=== PATIENT | male | born 1990 | race African-American/Black ===

== ENCOUNTER 2018-06-23 09:44 | Emergency (ER) | payer SELFPAY ==
[2018-06-23] MEDS ORDERED: Dexamethasone 4 mg/ml Vial ONE (10:07)
== END 2018-06-23 10:10 | disposition home or self-care (01) ==
LOC: ERS 09:44
DX: K08.89 Other specified disorders of teeth and supporting structures (principal)
CPT/HCPCS: 99283; J1100

== ENCOUNTER 2018-11-09 11:15 | Emergency (ER) | payer SELFPAY ==
[2018-11-09] MEDS ORDERED: Ondansetron ODT 4 MG TAB ONE (12:55)
== END 2018-11-09 13:30 | disposition home or self-care (01) ==
LOC: ERS 11:15
DX: R11.2 Nausea with vomiting, unspecified (principal)
CPT/HCPCS: 96372; J0500; Q0162

== ENCOUNTER 2018-11-16 11:22 | Emergency (ER) | payer SELFPAY ==
[2018-11-16] MEDS ORDERED: Ibuprofen 200 MG TAB ONE ×2 (12:59→13:05)
== END 2018-11-16 14:52 | disposition home or self-care (01) ==
LOC: ERS 11:22
DX: R51 Headache (principal)
CPT/HCPCS: 99283

== ENCOUNTER 2020-10-27 01:55 | Emergency (ER) | payer SELFPAY | END 2020-10-27 03:45 | disposition left against medical advice (07) | LOC: ERS 01:55 | DX: Z53.21 Procedure and treatment not carried out due to patient leaving prior to being seen by health care provider (principal) ==

== ENCOUNTER 2021-05-20 14:38 | Emergency (ER) | payer SELFPAY | END 2021-05-20 17:46 | disposition home or self-care (01) | LOC: ERS 14:38 | DX: J02.0 Streptococcal pharyngitis (principal) | CPT/HCPCS: 87430; 99283 ==

== ENCOUNTER 2022-03-31 23:29 | Emergency (ER) | payer SELFPAY ==
[2022-04-01] MEDS ORDERED: Dexamethasone 10 MG/ML VIAL ONE (01:26)
[2022-04-01] MEDS ORDERED: Ibuprofen 800 MG TAB ONE (01:26)
== END 2022-04-01 01:58 | disposition home or self-care (01) ==
LOC: ERS 23:29
DX: J06.9 Acute upper respiratory infection, unspecified (principal); Z20.822 Contact with and (suspected) exposure to COVID-19
CPT/HCPCS: 99283; J1100; U0003; U0005